=== PATIENT | female | born 1955 | race Caucasian/White ===

== ENCOUNTER → 2020-04-06 12:23 | Outpatient (CLI) | payer OTHER, SELFPAY ==
--- NOTE | ~2020-04-06 | MM_ITS ---
EXAMINATION: MM screening [facility] BI w ella HISTORY: Screening mammogram TECHNIQUE: Craniocaudal and mediolateral oblique 3-D tomosynthesis images were obtained and synthetic 2-D images were generated. CAD analysis was submitted and interpreted. COMPARISON: 11/27/2018 bilateral digital screening mammogram 10/08/2017 diagnostic left digital mammogram 10/02/2017, 12/23/2015 bilateral digital screening mammogram examinations BREAST PARENCHYMAL COMPOSITION: The breasts are heterogeneously dense, which may obscure small masses . FINDINGS: An asymmetric approximately 11 mm opacity is noted at the posterior aspect of the inner rig ht breast projection. Diagnostic right mammogram and right breast ultrasound examination are recommen ded for further evaluation. There is focal asymmetry in the posterior mid left breast on CC projection. Diagnostic left mammogram is recommended, with ultrasound if required.. IMPRESSION: 1. 11 mm asymmetric opacity in posterior inner right breast and focal asymmetry in posterior mid left breast on cc views 2. Bilateral diagnostic mammography is recommended, with ultrasound as required BI-RADS Category 0: Incomplete: Needs additional imaging evaluation. Reviewed, dictated and finalized at location A. RICAL CONTROL OPERATOR
== END ==
PROVIDERS: PCP Family Medicine; Visit Provider Student in an Organized Health Care Education/Training Program
DX: Z12.31 Encounter for screening mammogram for malignant neoplasm of breast (principal); R92.8 Other abnormal and inconclusive findings on diagnostic imaging of breast
CPT/HCPCS: 77063; 77067

== ENCOUNTER → 2020-04-25 08:40 | Outpatient (CLI) | payer OTHER, SELFPAY ==
--- NOTE | ~2020-04-25 | MMUS_ITS ---
EXAMINATION: MM diagnostic mammo BI, US breast BI complete HISTORY: 11 mm asymmetric opacity in posterior inner right breast on CC projection and focal asymmetr y in the posterior mid left breast on CC projection of 04/06/2020 bilateral digital screening mammogra m examinations TECHNIQUE: Additional 3-D tomosynthesis images of both breasts were performed and synthetic 2-D image s were generated. CAD analysis was submitted and interpreted. High resolution bilateral complete dominique st ultrasound was performed. COMPARISON: 04/06/2020 bilateral digital screening mammogram FINDINGS: MAMMOGRAPHIC FINDINGS: No suspicious reproducible mass is noted. There are scattered benign calcifications, more numerous on the left. ULTRASOUND: Scattered bilateral benign appearing cysts are noted, all measuring under 4 mm maximal dimension. No suspicious mass or shadowing there are either breast is evident. IMPRESSION: 1. No mammographic evidence of malignancy 2. Routine annual mammographic screening is recommended BI-RADS Category 2: Benign finding(s). Reviewed, dictated and finalized at location A. ENT SITTER IMPRESSION: 1. No mammographic evidence of malignancy 2. Routine annual mammographic screening is recommended BI-RADS Category 2: Benign finding(s).
== END ==
PROVIDERS: PCP Family Medicine; Visit Provider Student in an Organized Health Care Education/Training Program
DX: R92.8 Other abnormal and inconclusive findings on diagnostic imaging of breast (principal)
CPT/HCPCS: 76641; 77066

== ENCOUNTER → 2022-05-21 11:37 | Outpatient (CLI) | payer MEDICARE, SELFPAY ==
--- NOTE | ~2022-05-21 | MM_ITS ---
EXAMINATION: MM screening [facility] BI w ella HISTORY: Screening mammogram TECHNIQUE: Craniocaudal and mediolateral oblique 3-D tomosynthesis images were obtained and synthetic 2-D images were generated. CAD analysis was submitted and interpreted. COMPARISON: 04/25/2020, 04/06/2020, 11/27/2018 BREAST PARENCHYMAL COMPOSITION: There are scattered areas of fibroglandular density. FINDINGS: RIGHT BREAST: No suspicious mass, calcification, or architectural distortion are identified to sugges t malignancy. There has been no suspicious interval change. LEFT BREAST: An asymmetry is present in the posterior third of the inner left breast on the craniocau jessica view. IMPRESSION: 1. Left breast asymmetry. 2. Additional mammographic views and possible breast ultrasound are recommended. BI-RADS Category 0: Incomplete: Needs additional imaging evaluation. Reviewed, dictated and finalized at location A. INER IMPRESSION: 1. Left breast asymmetry. 2. Additional mammographic views and possible breast ultrasound are recommended . BI-RADS Category 0: Incomplete: Needs additional imaging evaluation.
--- NOTE | ~2022-05-21 | DEXA_ITS ---
Bone Density Report Name: JOSE MARIA TOUSSAINT Age: 66 Sex: Female Ethnicity: White Date of : 1955 Indication: osteopenia; postmenopausal Referring Provider: Ame Medina Study: Bone densitometry was performed. Exam Date: May 21, 2022 Accession number: [id number] Bone Density: Region BMD T-score Z-score Classification AP Spine (L1-L4) 0.835 -1.9 -0.1 Osteopenia Femoral Neck (Left) 0.649 -1.8 -0.2 Osteopenia Total Hip (Left) 0.871 -0.6 0.7 Normal Femoral Neck (Right) 0.626 -2.0 -0.5 Osteopenia Total Hip (Right) 0.849 -0.8 0.5 Normal Total Hip Mean 0.860 -0.7 0.6 Normal World Health Organization criteria for BMD impression classify patients as: Normal (T-score at or above -1.0), Osteopenia (T-score between -1.0 and -2.5), or Osteoporosis (T-score at or below -2.5). 10-year Fracture Risk(1): Major Osteoporotic Fracture 9.9% Hip Fracture 1.5% Reported Risk Factors: [place] (), Neck BMD=0.626, BMI=22.1 (1) FRAX(R) Version 3.08. Fracture probability calculated for an untreated patient. Fracture probability may be lower if the patient has received treatment. Previous Exams: Region Exam Age BMD T-score BMD Change BMD Change Date g/cm2 vs Baseline vs Previous AP Spine(L1-L4) 05/21/2022 66 0.835 -1.9 -0.179* 0.025* 11/27/2018 63 0.810 -2.2 -0.204* -0.204* 05/16/2009 53 1.014 -0.3 Total Hip(Left) 05/21/2022 66 0.871 -0.6 -0.054* 0.015 11/27/2018 63 0.857 -0.7 -0.069* -0.069* 05/16/2009 53 0.926 -0.1 Total Hip(Right) 05/21/2022 66 0.849 -0.8 -0.085* -0.007 11/27/2018 63 0.857 -0.7 -0.077* -0.077* 05/16/2009 53 0.934 -0.1 *Denotes significance at 95% confidence level, LSC for AP Spine = 0.022 g/cm2, LSC for Total Hip = 0.027 g/cm2 Clinical Information Provided by Patient: Has used the following medications: Vitamin D, Calcium, MTV Patient maximum height was 69.5 Menopause Age: 58 No regular weight bearing exercise Onset of menses at age 18 Number of children 4 Missed period for more than 6 months in a row Impression: The patient has low bone mass, based on the Right Femoral Neck T-score. The patient has an estimated ten-year risk of hip fracture of 1.5% and an estimated ten-year risk of major fracture of 9.9%, based on the WHO FRAX algorithm. No significant bone loss was observed. Dis
== END ==
PROVIDERS: PCP Family Medicine; Visit Provider Student in an Organized Health Care Education/Training Program
DX: Z12.31 Encounter for screening mammogram for malignant neoplasm of breast (principal); Z78.0 Asymptomatic menopausal state; R92.8 Other abnormal and inconclusive findings on diagnostic imaging of breast; M85.88 Other specified disorders of bone density and structure, other site; M85.852 Other specified disorders of bone density and structure, left thigh; M85.851 Other specified disorders of bone density and structure, right thigh
CPT/HCPCS: 77063; 77067; 77080

== ENCOUNTER → 2022-06-19 09:51 | Outpatient (CLI) | payer MEDICARE, SELFPAY ==
--- NOTE | ~2022-06-19 | MM_ITS ---
EXAMINATION: MM diagnostic leah LT w ella HISTORY: Left breast asymmetry reported in posterior third of inner breast on 05/21/2022 craniocaudal s creening view TECHNIQUE: Additional 3-D tomosynthesis images of the left breast were performed and synthetic 2-D im ages were generated. CAD analysis was submitted and interpreted. COMPARISON: May 21ilateral screening mammogram FINDINGS: No suspicious mass or architectural distortion is evident. The suggested mass or asymmetry in the posterior inner left breast on screening craniocaudal view is not confirmed on coned compressi on view, compatible with composite shadowing of overlapping fibroglandular stroma. IMPRESSION: 1. No mammographic evidence of malignancy 2. Routine annual mammographic screening is recommended BI-RADS Category 1: Negative Reviewed, dictated and finalized at location A.
== END ==
PROVIDERS: PCP Family Medicine; Visit Provider Obstetrics & Gynecology
DX: R92.8 Other abnormal and inconclusive findings on diagnostic imaging of breast (principal)
CPT/HCPCS: 77061; 77065; G0279